=== PATIENT | female | born 2000 | race Two or more races ===

== ENCOUNTER 2024-05-09 08:36 | Observation (INO) | payer MEDICAID ==
--- NOTE | 2024-05-09 14:34 | DVHDS2 ---
Physician Discharge Progress N Final Diagnosis: labor check Operations or Procedures: Operations or Procedures nst Condition on Discharge: Good Disposition: Home Discharge Instructions: Diet: Regular Activity: No Restrictions, As Tolerated Medications: na Follow Up Care: Specialist: 2d Discharge Statement: "Patient was advised to return to the ER or call 911 if any headaches, dizziness, shortness of breath, chest pain, abdominal pain, bleeding, fevers, or worsening of medical condition. Patient was counseled about treatment plan, medications, possible side effects, patientverbalized understanding. All questions were answered to the best of my ability. This discharge took greater then 30 minutes in planning, reviewing documentation, counseling the patient, and discussing with other team members." ALEJO CARRIZALES DO May 09, 2024 14:34
[2024-05-10] MEDS ORDERED: PREN-96 PO (14:49)
[2024-05-10] MEDS ORDERED: DOCU-265 PO (14:49)
[2024-05-10] MEDS ORDERED: IBU600T PO (14:49)
== END 2024-05-09 11:14 | disposition home or self-care (01) ==
LOC: LDRP 08:36 → UNDOADMOB 08:36 → LDRP 10:06 → UNDODISOB 11:14
PROVIDERS: ADMIT Obstetrics & Gynecology; ATTEND Obstetrics & Gynecology
DX: O62.9 Abnormality of forces of labor, unspecified (principal); Z3A.39 39 weeks gestation of pregnancy; Z79.899 Other long term (current) drug therapy
CPT/HCPCS: 59025; 81002; G0378

== ENCOUNTER 2024-05-09 22:05 | Inpatient (IN) | payer MEDICAID ==
[~2024-05-09] VITALS: Ht 167.6 cm; Wt 59.4 kg
[2024-05-09] MEDS ORDERED: NALBUPHINE HCL 10 MG/1ml INJECTION IM PRN (22:45)
[2024-05-09] MEDS ORDERED: LACTATED RINGER'S 1,000 ML IV SCH (22:45)
[2024-05-09] MEDS ORDERED: BUTORPHANOL TARTRATE 2 MG/1 ML VIAL IV PRN ×2 (22:45)
[2024-05-09] MEDS ORDERED: NALBUPHINE HCL 10 MG/1ml INJECTION IV PRN (22:45)
[2024-05-09] MEDS: LACT. RINGERS/OXYTOCIN 20UNITS 500 ML IV ONE ×2 (23:46→23:55)
[2024-05-09] MEDS: DERMOPLAST 60ML BOTTLE TOP PRN (23:51)
[2024-05-09] MEDS: PHISODERM TOP SOLN 240ML BTL TOP PRN (23:51)
[2024-05-09] MEDS: WITCH HAZEL-GLYCERIN PAD TOP PRN (23:51)
[2024-05-09] MEDS: IBUPROFEN 600 MG TAB PO PRN (23:54)
[2024-05-09] MEDS: LIDOCAINE 2%HCL (LOCAL ANESTH.) INJ 20ML MDV IJ PRN (23:57)
[2024-05-10] VITALS (7 sets, daily range): BP systolic 86–110; BP diastolic 50–74; PULSE 67–93; RESP 16–18; TEMP 98–99.4; O2SAT 95–99
[2024-05-10] MEDS ORDERED: ONDANSETRON ODT 4 MG TAB PO PRN
[2024-05-10] MEDS ORDERED: ACETAMINOPHEN 325 MG TAB PO PRN
[2024-05-10 00:01] LABS: INR 0.92 (0.9-1.15); Partial Thromboplastin Time 26.5 SEC (24.5-34.5); Prothrombin Time 9.8 sec (9.3-11.8)
--- NOTE | 2024-05-10 01:24 | DVHHP2 ---
OB CC & HPI Date Date of Admission: May 10, 2024 Patient Identification: : 2 Para: 1 EDC: May 13, 2024 EGA: 39.3wks Chief Complaints: Reason for admission: active labor History of Present Complaints 23yo IUP@39.3wks presents in active labor. Pt reports UCs Q3 min. Denies LOF/VB/GUEVARA/vision changes/RUQ pain. Endorses +FM. PNC: Routine PNC at [facility] (formerly [facility]) maternal health with Dr. Milner, adequate visits, PNC uncomplicated, only labs available. GTT wnl, YUMIKO of 05/13/24 per pt report, GBS negative. OB hx: x1, uncomplicated Past Medical History Cardiac: No pertinent Hx Pulmonary: No pertinent Hx Central Nervous System: No pertinent Hx GI: No pertinent Hx Hemotology/Oncology: No pertinent Hx Hepatobiliary: No pertinent Hx Psychiatric: No pertinent Hx Musculoskeletal: No pertinent Hx Rheumotologic: No pertinent Hx Infectious Disease: No peritnent Hx ENT: No pertinent Hx Renal/: No pertinent Hx Endocrine: No pertinent Hx Dermatology: No pertinent Hx Past Surgical History: No pertinent Hx OB History OB History Care: Good Care Ultrasounds: Normal mid trimester US (per pt, report unavailable) Obstetrical Complications: None Medical Complications: None Allergies: Coded Allergies: NO KNOWN ALLERGIES (Unverified , 05/09/24) Home Meds No Active Prescriptions or Reported Meds Home Meds PNV Current Medications Current Medications Medications (Trade) Dose Ordered Sig/Franklyn Route PRN Reason Start Time Stop Time Status Last Admin Lactated Ringer's 1,000 ml @ 125 mls/hr Q8H IV 05/09/24 22:45 05/10/24 00:50 DC Nalbuphine HCl (Nubain) 10 mg Q4HP PRN IM MODERATE PAIN (4-6 PAIN SCALE) 05/09/24 22:45 Nalbuphine HCl (Nubain) 10 mg Q4HP PRN IV MODERATE PAIN (4-6 PAIN SCALE) 05/09/24 22:45 Genesis Karla (Tucks) 1 pad PRN PRN TOP PERINEAL AREA DISCOMFORT 05/09/24 22:45 05/09/24 23:51 Sodium Lauryl Sulfate (Phisoderm) 240 ml PRN PRN TOP PERINEAL AREA DISCOMFORT 05/09/24 22:45 05/09/24 23:51 Benzocaine (Dermoplast) 1 applic PRN PRN TOP PERINEAL AREA DISCOMFORT 05/09/24 22:45 05/09/24 23:51 Butorphanol Tartrate (Stadol Injection) 1 mg Q4HPRN PRN IV MODERATE PAIN (4-6 PAIN SCALE) 05/09/24 22:45 05/10/24 00:50 DC Butorphanol Tartrate (Stadol Injection) 2 mg Q4HPRN PRN IV SEVERE PAIN (7-10 PAIN SCALE) 05/09/24 22:45 05/10/24 00:50 DC Lidocaine HCl (Xylocaine) 20 ml ONCE PRN IJ PERINEAL AREA DISCOMFORT 05/09/24 22:45 05/09/24 23:57 Ibuprofen (Motrin Tablet) 600 mg Q6HP PRN PO MODERATE PAIN (4-6 PAIN SCALE) 05/10/24 00:00 05/09/24 23:54 Acetaminophen (Tylenol Tablet) 650 mg Q4HP PRN PO MILD PAIN (1-3 PAIN SCALE) 05/10/24 00:00 Ondansetron HCl (Zofran Po) 4 mg Q4HPRN PRN PO NAUSEA / VOMITING 05/10/24 00:00 Docusate Sodium (Colace Capsule) 200 mg HS PO 05/10/24 22:00 Family & Social History Family/Social History Past Family/Social History: denies Blood Type: O+ Rubella: immune RPR/VDRL: Negative GBS Status: Negative HBsAG: Negative Review of Systems Constitutional: No symptom reported Ears, Nose, & Throat: No symptom reported Eyes: No symptom reported Pulmonary/Respiratory: No symptom reported Cardiovascular: No symptom reported Gastrointestinal: No symptom reported Genitourinary: No symptom reported Musculoskeletal: No symptom reported Skin: No symptom reported Psychiatric: No symptom reported Endocrine: No symptom reported Hemotologic/Lymphatic: No symptom reported OB Admission Exam Physical Exam Vitals: VSS, see chart EFM: FHR 160s, moderate variability, +accels, +variable decels HEENT: TMs Normal, Fontanelles Normal, Nasal Mucosa Normal, Eyes non-injected, Oropharynx Normal, PERRLA, Moist Membranes, EOMI Heart: Rhythm Normal Lungs: Clear Abdomen: Gravid Extremities: Normal Reflexes: Normal Pelvic Exam: SVE by RN: /-2, vertex Membranes: Ruptured (light meconium) Contractions on Admission: < 5 Minutes Apart Intensity: Moderate OB Plan Plan Admitting Diagnosis: Active Labor Plan: Expectant Management Other Plan: A: 23yo IUP@39.3wks Active Labor Category II EFM SROM, light meconium GBS negative P: Admit to L&D Informed consent obtained Expectant management for now due to frequent UCs monitoring per order Routine labs ordered Pain mgmt PRN Frequent position changes in and out of bed encouraged Limit SVE unless necessary Intrauterine resuscitation PRN Anticipate CNM will consult with MERE Gilmore CNM May 10, 2024 01:24
--- NOTE | 2024-05-10 01:30 | LDN2 ---
Labor and Delivery Note Date 05/10/24 Age 23 2 Para 2 now AB 0 EDC 05/13/24 EGA 39.3wks Diagnosis Active labor then Vaginal Delivery: VTX Vacuum Assisted: No Placenta: Spontaneous Sex: Male Weight pending Apgars 8/9 Nuchal Cord Present: No Nuchal Cord Transected: No Amniotic Fluid: Meconium Stained, Thin Anesthesia local Episiotomy: No Extension: No Lacerations: Yes (first degree perineal laceration) Repaired with 3-0 vicryl EBL QBL 300ml Complications none Conditions stable Rigger Somu Delivery Summary At 2318 this 23yo now delivered a viable Male infant by w/ APGARS 8/9. SUKHI presentation. placed skin to skin on pts chest. Cord clamped and cut after pulsation ceased. Cord blood sent. Intact 3-vessel cord placenta delivered spontaneously, Vivi. Pitocin IV bolus started. Placenta sent to pathology. Patient had local anesthesia. Cervix/vagina inspected (intact) and first degree perineal laceration present which was repaired with 3-0 vicryl suture. Fundus 1 below U, firm, midline, and light lochia. QBL 300ml. VSS. Count correct x2. Patient to care and baby to couplet care, both stable. MERE LUO CNM May 10, 2024 01:30
--- NOTE | 2024-05-10 01:47 | DVHPN2 ---
Progress Note Date Seen: May 10, 2024 Subjective Pt feels sore and has uterine cramping, took ibuprofen already. vital signs VSS, see chart medications Current Medications Medications Dose Ordered Sig/Franklyn Route Start Time Stop Time Status Last Admin Dose Admin Genesis Acosta 1 pad PRN PRN TOP 05/09/24 22:45 05/09/24 23:51 1 PAD Sodium Lauryl Sulfate 240 ml PRN PRN TOP 05/09/24 22:45 05/09/24 23:51 240 ML Benzocaine 1 applic PRN PRN TOP 05/09/24 22:45 05/09/24 23:51 1 APPLIC Ibuprofen 600 mg Q6HP PRN PO 05/10/24 00:00 05/09/24 23:54 600 MG Acetaminophen 650 mg Q4HP PRN PO 05/10/24 00:00 Ondansetron HCl 4 mg Q4HPRN PRN PO 05/10/24 00:00 Docusate Sodium 200 mg HS PO 05/10/24 22:00 laboratory and microbiology Test 05/09/24 23:16 Range/Units Serum Glucose Pending Objective O: VSS Chest: heart sounds normal and lung sounds clear bilaterally Abd: soft, non-tender, fundus 1 below U/firm/midline, active bowel sounds, no rebound or guarding Perineum: sutures intact, edges well approximated, no erythema/edema noted Ext: Non-tender, No edema, 2+ BLE DTRs Lochia: minimal See lab results Problems(with codes): (1) (normal spontaneous vaginal delivery) (2) Precipitous delivery (3) First degree perineal laceration during delivery Assessment/Plan A/P: 23yo now PPD#1 s/p -Continue routine PP care -Repeat CBC in AM Plan discussed with: Patient MERE LUO CN May 10, 2024 01:47
[2024-05-10 03:26] LABS: Basophils # (auto) 0.1 10 ^3/uL (0-0.2); Eosinophils # (auto) 0 10 ^3/uL (0-0.8); Eosinophils % (auto) 0.2 % (0.0-7.0); Neutrophils # (auto) 8.1 10 ^3/uL (1.6-8.6); White Blood Cell 10.9 10^3/uL (4.4-10.8)
[2024-05-10 03:29] LABS: Basophils % (auto) 0.9 % (0.0-2.0); Hemoglobin 11.9 g/dL (12.2-16.2); Lymphocytes # (auto) 2.1 10 ^3/uL (0.4-5.4); Lymphocytes % (auto) 18.8 % (10.0-50.0); Mean Corpuscular Hemoglobin 26.7 pg (28.0-32.0); Mean Corpuscular Hgb Conc. 32.2 g/dL (32.0-36.0); Mean Corpuscular Volume 82.9 fL (80.0-100.0); Monocytes # (auto) 0.6 10 ^3/uL (0-1.3); Monocytes % (auto) 5.7 % (0.0-12.0); Neutrophils % (auto) 74.4 % (37.0-80.0); Nucleated Red Blood Cells % 0.4 %; Platelet Count (auto) 152 10^3/uL (140-450); Red Blood Cells 4.46 10^6/uL (4.0-5.20); Red Cell Distribution Width 16.3 % (11.8-14.3)
[2024-05-10 03:33] LABS: Alanine Aminotransferase 10 U/L (7-40); Albumin 3.9 g/dL (3.2-4.8); Anion Gap 12 (5-15); Aspartate Aminotransferase 18 U/L (13-40); BUN/Creatinine Ratio 14.1 (10.0-20.0); Bilirubin, Total 0.6 mg/dL (0.2-1.0); Blood Urea Nitrogen 10 mg/dL (9-23); Calcium 9.3 mg/dL (8.7-10.4); Chloride 106 mmol/L (98-107); Glucose 97 mg/dL (74-106); Sodium 137 mmol/L (136-145); Total Protein 6.5 g/dL (5.7-8.2)
[2024-05-10 03:53] LABS: Alkaline Phosphatase 428 U/L (46-116); Carbon Dioxide 19 mmol/L (20-31)
[2024-05-10 08:05] LABS: Basophils # (auto) 0 10 ^3/uL (0-0.2); Basophils % (auto) 0.2 % (0.0-2.0); Eosinophils # (auto) 0 10 ^3/uL (0-0.8); Eosinophils % (auto) 0.1 % (0.0-7.0); Hematocrit 34.3 % (36.0-46.0); Hemoglobin 11.2 g/dL (12.2-16.2); Lymphocytes # (auto) 1.9 10 ^3/uL (0.4-5.4); Lymphocytes % (auto) 13.2 % (10.0-50.0); Mean Corpuscular Hemoglobin 26.8 pg (28.0-32.0); Mean Corpuscular Hgb Conc. 32.8 g/dL (32.0-36.0); Mean Corpuscular Volume 81.8 fL (80.0-100.0); Monocytes # (auto) 0.8 10 ^3/uL (0-1.3); Monocytes % (auto) 5.4 % (0.0-12.0); Neutrophils # (auto) 11.4 10 ^3/uL (1.6-8.6); Neutrophils % (auto) 81.1 % (37.0-80.0); Nucleated Red Blood Cells % 0.1 %; Platelet Count (auto) 158 10^3/uL (140-450); Red Blood Cells 4.19 10^6/uL (4.0-5.20); Red Cell Distribution Width 15.9 % (11.8-14.3)
[2024-05-10 13:24] LABS: Urine Bacteria None Seen /hpf (None Seen)
[2024-05-10 13:40] LABS: Barbiturate Scree,Urine Neg (NEGATIVE); Opiate Scree,Urine Neg (NEGATIVE)
[2024-05-10 13:41] LABS: Amphetamine Screen, Urine Neg (NEGATIVE); Benzodiazephine Screen, Urine Neg (NEGATIVE); Cocaine Screen, Urine Neg (NEGATIVE); Urine Blood 2+ /uL (Negative); Urine Clarity Clear (Clear); Urine Color Colorless (Yellow); Urine Protein, UAD Negative (Negative); Urine Specific Gravity 1.006 (1.001-1.035); Urine Urobilinogen Normal (Negative); Urine WBC 6 /hpf (0 - 5)
[2024-05-10 13:42] LABS: Cannabinoid Screen, Urine Neg (NEGATIVE); Phencyclidine Screen, Urine Neg (NEGATIVE)
[2024-05-10] MEDS ORDERED: DOCU-265 PO (14:49)
[2024-05-10] MEDS ORDERED: PREN-96 PO (14:49)
[2024-05-10] MEDS ORDERED: IBU600T PO (14:49)
[2024-05-10] MEDS: DOCUSATE SOD 100 MG CAP PO SCH (22:02)
[2024-05-11 03:08] VITALS: BP 95/64; PULSE 84; RESP 20; TEMP 98.1; O2SAT 97
[2024-05-11 07:15] VITALS: BP 90/58; PULSE 86; RESP 18; TEMP 98.7; O2SAT 97
--- NOTE | 2024-05-11 07:40 | DVHPN2 ---
Chief Complaints Patient reports: No new complaints Nursing reports: No new complaints Objective Vitals Vital Signs Date Time Temp Pulse Resp B/P (MAP) Pulse Ox O2 Delivery O2 Flow Rate FiO2 05/11/24 03:08 98.1 84 20 95/64 (74) 97 98.1 05/10/24 19:00 Room Air Medications Current Medications Medications (Trade) Dose Ordered Sig/Franklyn Route PRN Reason Start Time Stop Time Status Last Admin Docusate Sodium (Colace Capsule) 200 mg HS PO 05/10/24 22:00 05/10/24 22:02 General: Normal Neck: No thyromegaly Lungs: Normal Cardiovascular: Normal Abdominal: Soft Extremities: Normal Studies Laboratory Tests 05/10/24 07:35 05/09/24 23:16 Test 05/09/24 23:16 Range/Units Serum Glucose 97 74-106 mg/dL Ass/Plan Assessment S/P Plan DC HOME FU ION 2WKS ALEJO CARRIZALES DO May 11, 2024 07:40
--- NOTE | 2024-05-11 07:41 | DVHDS2 ---
Obstetrics Discharge Summary Obstetrics Discharge Summary Date of Admission: May 09, 2024 Date of Discharge: May 11, 2024 Reason For Admission: Onset of Labor Procedures: NST Intrapartum Procedures: Spontaneous vaginal deliv Procedures: None Operative Complicat: None Discharge Diagnosis: Term -Delivered Discharge Information: Activity (Other), Diet, Medications (None), Instructions (Routine), Discharge to (Home), Discarge date (05-11) ALEJO CARRIZALES DO May 11, 2024 07:41
[2024-05-11 11:15] VITALS: BP 89/58; PULSE 84; RESP 18; TEMP 98.4; O2SAT 97
[2024-05-13 02:06] LABS: Rubella Antibodies, IgG 1.88 index (Immune >0.99)
== END 2024-05-11 13:03 | disposition home or self-care (01) | DRG 560 ==
LOC: LDRP 22:05 → OBSVTOIN 22:38 → LDRP 23:01
PROVIDERS: ADMIT Obstetrics & Gynecology; ATTEND Obstetrics & Gynecology
PROC: 10E0XZZ Delivery of Products of Conception, External Approach (ICD-10-PCS; principal; 2024-05-10)
PROC: 0HQ9XZZ Repair Perineum Skin, External Approach (ICD-10-PCS; 2024-05-10)
DX: O77.0 Labor and delivery complicated by meconium in amniotic fluid (principal); Z37.0 Single live birth; O70.0 First degree perineal laceration during delivery; Z3A.39 39 weeks gestation of pregnancy
CPT/HCPCS: 36415; 59025; 59409; 80053; 80307; 81001; 85025; 85610; 85730; 86592; 86703; 86762; 86780; 86803; 86850; 86900; 86901; 87340; 94760; 96360; 96361; 96365; 96366; G0378; J2590